=== PATIENT | female | born 1960 | race Caucasian/White ===

== ENCOUNTER 2021-02-18 07:05 | Day surgery (SDC) | payer BC ==
[2021-02-18 07:45] LABS: Hemoglobin 10.6 g/dL (12.0-15.5); Mean Corpuscular HGB CONC 30.2 g/dL (32.0-36.0); Mean Corpuscular Hemoglobin 30.5 pg (27.0-33.0); Mean Corpuscular Volume 101.2 fl (81.6-98.3); Platelet Count 64 10x3/uL (150-450); Red Blood Cell (RBC) Count 3.47 10x6/uL (3.90-5.03); White Blood Cell (WBC) Count 2.8 10x3/uL (3.5-10.5)
[2021-02-18 07:55] VITALS: TEMP 98.3
[2021-02-18 07:57] LABS: INR-International Normal Ratio 0.9; PTT 24.6 sec (22.0-33.0)
[2021-02-18 08:18] LABS: MDiff Complete? YES
[2021-02-18] MEDS ORDERED: Midazolam HCl 2 mg/2 ml Vial ONE (08:25)
[2021-02-18] MEDS ORDERED: Fentanyl 100 MCG/2 ML VIAL ONE (08:27)
[2021-02-18] MEDS ORDERED: Sodium Bicarbonate 2.5 MEQ/5 ML VIAL ONE (08:28)
[2021-02-18] MEDS ORDERED: Lidocaine 1% PF 5 ML VIAL ONE (08:28)
[2021-02-18] MEDS ORDERED: Naloxone HCl 0.4 mg/ml Vial ONE (08:28)
[2021-02-18 08:34] LABS: Band 1 % (5-11); Eosinophils 2 % (0-10); Monocytes 3 % (0-10); Neutrophil 22 % (42-75)
[2021-02-18 08:35] LABS: Lymphocytes 71 % (21-51)
[2021-02-18 08:37] LABS: Hypochromia SLIGHT = 6-15 cells (100X) (0-5/hpf); Macrocytosis SLIGHT = 6-15 cells (100X) (0-5/hpf); Platelet Morphology Comment Appears Decreased; Reflex for Review?? YES
[2021-02-18 09:18] LABS: Ovalocytes SLIGHT = 2-5 cells (100X) (0-1/hpf)
[2021-02-18 11:26] VITALS: BP 96/55
== END 2021-02-18 10:55 | disposition home or self-care (01) ==
LOC: CSHCT 07:05
PROVIDERS: ATTEND Internal Medicine Hematology & Oncology
PROC: 07DR3ZX Extraction of Iliac Bone Marrow, Percutaneous Approach, Diagnostic (ICD-10-PCS; principal; 2021-02-18)
DX: D50.0 Iron deficiency anemia secondary to blood loss (chronic) (principal); D61.818 Other pancytopenia; D51.8 Other vitamin B12 deficiency anemias
CPT/HCPCS: 77012; 85025; 85060; 85610; 85730; 88184; 88237; 99152; 99153; J2250; J2310; J3010